=== PATIENT | female | born 1995 | race Caucasian/White ===

== ENCOUNTER 2020-09-30 05:37 | Day surgery (SDC) | payer BC ==
[2020-09-27 16:31] VITALS: BMI 25.0
[2020-09-30 08:37] VITALS: TEMP 97.3
[2020-09-30 09:11] VITALS: BP 108/59; PULSE 59
== END 2020-09-30 09:16 | disposition home or self-care (01) ==
LOC: JASU-ENDO 05:37
PROVIDERS: ATTEND Internal Medicine Gastroenterology
PROC: 0DB78ZX Excision of Stomach, Pylorus, Via Natural or Artificial Opening Endoscopic, Diagnostic (ICD-10-PCS; 2020-09-30)
PROC: 0DB98ZX Excision of Duodenum, Via Natural or Artificial Opening Endoscopic, Diagnostic (ICD-10-PCS; principal; 2020-09-30 08:07)
DX: K29.40 Chronic atrophic gastritis without bleeding (principal)
CPT/HCPCS: 81025; 88305-TC; 88342-TC